=== PATIENT | female | born 1965 | race Caucasian/White ===

== ENCOUNTER → 2017-04-20 | Outpatient (CLI) | payer BC ==
--- NOTE | 2017-04-20 10:54 | US ---
EXAMINATION TYPE: US abdomen limited DATE OF EXAM: 04/20/2017 COMPARISON: 05/02/2016 CLINICAL HISTORY: R10.11 RUQ Abdominal Pain. h/o cholecystectomy. Patient is to follow with HIDA scan of pancreas soon EXAM MEASUREMENTS: Liver Length: 16.6 cm Gallbladder Wall: Surgically absent CBD: 0.5 cm Right Kidney: 10.8 x 3.7 x 3.4 cm Pancreas: wnl Liver: slightly difficult to penetrate Gallbladder: Surgically absent Evidence for sonographic Kennedy's sign: yes CBD: wnl Right Kidney: wnl IMPRESSION: 1. Fatty liver. 2. Postoperative changes of cholecystectomy.
== END | disposition home or self-care (01) ==
LOC: RADUSWWP 04-19 07:36
PROVIDERS: ATTEND Family Medicine
DX: K76.0 Fatty (change of) liver, not elsewhere classified (principal); Z90.49 Acquired absence of other specified parts of digestive tract
CPT/HCPCS: 76705

== ENCOUNTER → 2017-05-23 | Outpatient (CLI) | payer BC ==
--- NOTE | 2017-05-23 08:06 | US ---
EXAMINATION TYPE: US pelvis complete transvag DATE OF EXAM: 05/23/2017 COMPARISON: Pelvic ultrasound February 23, 2015 CLINICAL HISTORY: R10.2 PELVIC PAIN RT. Right side discomfort, Ablation- 2014, No periods, hx of c-se ction TECHNIQUE: Transvaginal (TV) and Transabdominal (TA) Date of LMP: 2014, EXAM MEASUREMENTS: Uterus: 7.8 x 3.7 x 3.3 cm Endometrial Stripe: 0.4 cm Right Ovary: 2.1 x 1.3 x 1.4 cm Left Ovary: 2.2 x 1.5 x 1.3 cm 1. Uterus: Anteverted Appears heterogenous. scar seen. Midline fundal hypoechoic lesio n = 1.5 x 1.8 x 1.8 cm. Left cystic appearing lesion seen = 0.5 x 0.6 x 0.3 cm 2. Endometrium: portions difficult to distinguish, possibly due to ablation 3. Right Ovary: wnl 4. Left Ovary: wnl Color doppler imaging shows good vascular flow within the ovaries; 5. Bilateral Adnexa: wnl 6. Posterior cul-de-sac: no free fluid cervix- wnl Anteverted uterus is present. Technologist zavala 2.0 cm poor defined oval hypoechoic lesion bulging u terine contour felt to reflect subserosal fibroid superiorly and anteriorly on image 15. Myometrium i s heterogeneous with cystic change. Endometrium is felt within normal limits. No free fluid is seen i n pelvis. Both ovaries are identified. No suspicious adnexal lesions are seen. IMPRESSION: Probable intrauterine fibroid or fibroids. No suspicious finding is seen to account for p atient's symptoms.
--- NOTE | 2017-05-23 08:24 | BD ---
EXAMINATION TYPE: MG DEXA axial skeleton. DATE OF EXAM: 05/23/2017 COMPARISON: NONE CLINICAL HISTORY: Screening (Z13.820) per order Height: 66 Weight: 161.5 FRAX RISK QUESTIONS: Alcohol (3 or more units per day): NO Family History (Parent hip fracture): NO Glucocorticoids (More than 3mos): no (Ex: prednisone, prednisolone, methylprednisolone, dexamethasone, and hydrocortisone). History of Fracture in Adulthood: no Secondary Osteoporosis: 1. Type 1 Diabetes: no 2. Hyperthyroidism: no 3. Menopause before 45: no 4. Malnutrition: no 5. Chronic liver disease: no Rheumatoid Arthritis: no Current Tobacco Use: no RISK FACTORS HISTORY OF: Hip Fracture (Right/Left): no spine Fracture: no History of Wrist Fracture: no Surgery to Spine/Hip(right/left)/Wrist (right/left): no Family History of Osteoporosis: no Active: yes Diet low in dairy products/other sources of calcium: no Postmenopausal woman: ablation at age 49 Lost more than 2 inches in height since high school: no Frequent falls: no Poor Health: no Hyperparathyroidism: no Adrenal Insufficiency: no MEDICATIONS: Thyroid Medications: synthroid How Lon years Additional History: EXAM MEASUREMENTS: Bone mineral densitometry was performed using the [employer]. Bone mineral density as measured about the Lumbar spine is: ----- L1-L4(G/cm2): 1.465 T Score Values are as follows: ----- L2: 2.2 ----- L3: 3.0 ----- L4: 2.4 ----- L1-L4: 2.4 Bone mineral density baseline Bone mineral density about the R hip (g/cm2): 0.917 Bone mineral density about the L hip (g/cm2): 0.950 T Score values are as follows: -----R Neck: -0.9 -----L Neck: -0.6 -----R Total: -0.3 -----L Total: -0.3 Bone mineral density baseline IMPRESSION: Normal (Values between +1 and -1 indicate normal bone mass). Consider repeating this study in 5 year s or sooner if there is some new clinical indication. NOTE: T-SCORE=SD OF THE YOUNG ADULT MEAN.
--- NOTE | 2017-05-24 09:28 | MM ---
Reason for exam: screening (asymptomatic). Last mammogram was performed 1 year and 1 month ago. History: Implant Removal of both breasts, September 2015. Retro-pectoral saline implants in both breasts, June 1997. Took hormonal contraceptives beginning at age 17. Physical Findings: A clinical breast exam by your physician is recommended on an annual basis and results should be correlated with mammographic findings. MG 3D Screening Mammo W/Cad Bilateral CC and MLO view(s) were taken. Prior study comparison: April 22, 2016, bilateral MG diagnostic mammo w CAD ARMIN. February 23, 2015, bilateral MG diagnostic mammo w CAD ARMIN. The breast tissue is extremely dense which could obscure a lesion on mammography. Finding #1: There is a less than 10 mm round mass in the central position of the right breast. Finding #2: There are typically benign calcifications in both breasts. ASSESSMENT: Incomplete: need additional imaging evaluation, BI-RAD 0 RECOMMENDATION: Ultrasound of the right breast. [facility] will attempt to contact patient to return for ultrasound.
== END | disposition home or self-care (01) ==
LOC: RADUSWWP 07:11
PROVIDERS: ATTEND Obstetrics & Gynecology
DX: Z12.31 Encounter for screening mammogram for malignant neoplasm of breast (principal); R10.2 Pelvic and perineal pain; Z13.820 Encounter for screening for osteoporosis
CPT/HCPCS: 77080; 77063; 76856; 76830; G0202

== ENCOUNTER → 2017-05-25 | Outpatient (CLI) | payer BC ==
--- NOTE | 2017-05-25 10:49 | USB ---
Reason for exam: additional evaluation requested from abnormal screening. History: Implant Removal of both breasts, September 2015. Retro-pectoral saline implants in both breasts, June 1997. Took hormonal contraceptives beginning at age 17. Physical Findings: Nurse Summary: right breast movable palpable 9 o'clock 1 x 1cm, 2 o'clock 1 x 1cm (nurse ts). US Breast Workup Limited RT Right breast ultrasound demonstrates a 15 x 7 x 8mm cystic lesion at 9 o'clock, a 6mm cystic lesion at 10 o'clock, a 19 x 9 x 18mm cystic lesion at 12 o'clock and a 6 x 4 x 5mm isoechoic lesion at 4 o'clock, attempt aspiration post morphology on day of procedure with biopsy is persistent. These results were verbally communicated with the patient and result sheet given to the patient on 05/25/17. ASSESSMENT: Suspicious, BI-RAD 4 RECOMMENDATION: Ultrasound core biopsy of the right breast. Called Dr. Enriquez with mammographic findings and has scheduled an appointment for the patient for 06/05/17 at 11:[address] Marin. PRELIMINARY REPORT CALLED AND FAXED TO DR. MARIN ON 05/25/17.
== END | disposition home or self-care (01) ==
LOC: RADUSWWP 07:35
PROVIDERS: ATTEND Obstetrics & Gynecology
DX: R92.8 Other abnormal and inconclusive findings on diagnostic imaging of breast (principal)

== ENCOUNTER → 2017-06-07 | Day surgery (SDC) | payer BC ==
[2017-06-07 11:46] VITALS: RESP 12
[2017-06-07 13:17] VITALS: BP 120/79; PULSE 67; TEMP 97.2
--- NOTE | 2017-06-07 13:28 | USB ---
EXAMINATION TYPE: US biopsy breast VAD RT, MG diagnostic mammo RT wo CAD DATE OF EXAM: 06/07/2017 CLINICAL HISTORY: R92.8 ABN MAMMO. Abnormal ultrasound TECHNIQUE: Ultrasound guided core biopsy of right breast with clip placement and follow-up two-view mammogram. COMPARISON: Right breast ultrasound May 25, 2017. Bilateral breast mammogram May 23, 2017 and older studies. FINDINGS: The procedure of ultrasound guided core biopsy was explained to the patient. Benefits, alternatives, and risks were discussed. An informed consent was then obtained. The patient was placed in supine positioning for imaging and for the procedure. Preprocedure imaging redemonstrates a 5 mm hypoechoic round lesion 4: 00 position zone a with some increased through transmission. The overlying skin was prepped and draped in usual sterile fashion. Lidocaine was used as anesthetic into the skin. Lidocaine with epinephrine is used as anesthetic into the deeper tissue up to area of concern in the right breast. Under ultrasound guidance, a 12-gauge vacuum assisted biopsy gun device was used to obtain 3 core samples. Following this, a biopsy clip was left at site of lesion. After first biopsy sampling lesion was not well identified. The patient tolerated the procedure well without any immediate complication. The patient was kept in the radiology department for short stay after the procedure and then discharged home in stable condition. Postprocedure mammogram shows successful deployment of clip. Patient has background fibrocystic change. IMPRESSION: Successful, uncomplicated ultrasound guided core biopsy of area of concern in the right breast, full pathology results to follow. Low index of suspicion noted at time of procedure. Favor debris-filled cyst. Pathology Results: Benign BREAST, RIGHT, ULTRASOUND GUIDED CORE BIOPSY: FIBROCYSTIC CHANGE (STROMAL FIBROSIS, CYST FORMATION, APOCRINE METAPLASIA, ADENOSIS AND DUCT HYPERPLASIA). Recommendation Follow up ultrasound of the right breast in 6 months. KATIED
== END ==
LOC: RADUSWWP 11:13
PROVIDERS: ATTEND Surgery
DX: N60.31 Fibrosclerosis of right breast (principal); N60.01 Solitary cyst of right breast; N60.81 Other benign mammary dysplasias of right breast; N60.21 Fibroadenosis of right breast
CPT/HCPCS: 19083; 88305; G0206; A4648; J2001

== ENCOUNTER → 2017-11-30 | Outpatient (CLI) | payer BC ==
--- NOTE | 2017-11-30 07:55 | USB ---
Reason for exam: follow-up at short interval from prior study. History: Benign US biopsy breast VAD RT of the right breast, June 07, 2017. Implant Removal of both breasts, September 2015. Retro-pectoral saline implants in both breasts, June 1997. Took hormonal contraceptives beginning at age 17. Physical Findings: Nurse Summary: patient noticed lump in September, 1-2cm (nurse alexia). US Breast RT Right complete breast ultrasound includes all four quadrants, the retroareolar region and axilla. Finding demonstrates several oval, cystic lesions measuring 19 x 16 x 19mm at 12 o'clock BB, 25mm at 1 o'clock, 3mm at 8 o'clock, 16mm at 9 o'clock and a echogenic clip seen at 4 o'clock-no structure seen at clip. These results were verbally communicated with the patient and result sheet given to the patient on 11/30/17. ASSESSMENT: Benign, BI-RAD 2 RECOMMENDATION: Return to routine screening mammogram schedule for both breasts. Back on schedule.
== END | disposition home or self-care (01) ==
LOC: RADUSWWP 07:01
PROVIDERS: ATTEND Family Medicine
DX: R92.8 Other abnormal and inconclusive findings on diagnostic imaging of breast (principal)

== ENCOUNTER → 2018-11-20 | Outpatient (CLI) | payer BC ==
--- NOTE | 2018-11-20 08:08 | CT ---
EXAMINATION TYPE: CT chest wo/w con DATE OF EXAM: 11/20/2018 COMPARISON: None HISTORY: 53-year-old female Asthma, cough TECHNIQUE: Contiguous axial scanning of the chest after the administration of 100 mL of Isovue 300. Coronal/sagittal reconstructions performed. CT DLP: 429mGycm. Automatic exposure control utilized for a dose reduction. FINDINGS: Heart normal size without pericardial effusion. Aorta normal caliber with conventional arch vessel branching anatomy. No thoracic lymphadenopathy by CT size criteria. Some strandy atelectasis or scarring at the left base. Minimal biapical pleural parenchymal scarring is also noted. No consolidation or pleural effusion. Visualized upper abdomen shows cholecystectomy clips. Bones: No osseous destructive process. IMPRESSION: Some strandy left basilar atelectasis or scarring. No acute pulmonary process identified.
== END | disposition home or self-care (01) ==
LOC: RADCTMAIN 07:01
PROVIDERS: ATTEND Nurse Practitioner Family
DX: J45.909 Unspecified asthma, uncomplicated (principal); R05 Cough
CPT/HCPCS: 71270; Q9967

== ENCOUNTER → 2019-04-26 | Outpatient (CLI) | payer BC ==
--- NOTE | 2019-04-26 15:29 | US ---
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 Follow up thyroid nodules GLAND SIZE: Right Lobe: 4.3 x 1.2 x 1.2 cm Overall Parenchyma: homogenous Left Lobe: 4.0 x 1.0 x 1.3 cm Overall Parenchyma: homogeneous Isthmus Thickness: 0.2 cm NODULES RIGHT: # of nodules measured on right: 0 LEFT: # of nodules measured on left: 2 1. 0.6 X 0.4 x 0.5 cm hypoechoic solid nodule at the mid pole with well-defined margins; . This no dule is wider than tall and shows intranodular vascularity. Prior size: 0.6 x 0.4 x 0.5 cm 2. 0.4 X 0.3 x 0.3 cm isoechoic solid nodule at the upper pole with poorly defined margins; . This nodule is wider than tall and shows intranodular vascularity. Prior size: 0.3 x 0.2 x 0.3 cm ISTHMUS: # of nodules measured in the isthmus: 0 Bilateral neck scanned, no evidence of lymphadenopathy. IMPRESSION: No interval increase in size of the left thyroid nodules. Continued surveillance could be considered.
== END ==
LOC: RADUSWWP 14:51
PROVIDERS: ATTEND Family Medicine
DX: E04.2 Nontoxic multinodular goiter (principal)
CPT/HCPCS: 76536

== ENCOUNTER → 2019-06-10 | Outpatient (CLI) | payer BC ==
--- NOTE | 2019-06-11 08:45 | MM ---
Reason for exam: screening (asymptomatic). Last mammogram was performed 2 years ago. History: Benign US biopsy breast VAD RT of the right breast, June 07, 2017. Implant Removal of both breasts, September 2015. Retro-pectoral saline implants in both breasts, June 1997. Took hormonal contraceptives beginning at age 17. Physical Findings: A clinical breast exam by your physician is recommended on an annual basis and results should be correlated with mammographic findings. MG 3D Screening Mammo W/Cad Bilateral CC and MLO view(s) were taken. Prior study comparison: June 07, 2017, right breast MG diagnostic mammo RT wo CAD. May 23, 2017, bilateral MG 3d screening mammo w/cad. The breast tissue is heterogeneously dense. This may lower the sensitivity of mammography. Finding: There is a 11 mm circumscribed round mass in the outer quadrant, middle position of the right breast and adjacent nodule. Previous mammotome biopsy in the right breast. New finding and increase in size since June 07, 2017 and May 23, 2017. ASSESSMENT: Incomplete: need additional imaging evaluation, BI-RAD 0 RECOMMENDATION: Ultrasound of the right breast. [facility] will attempt to contact patient to return for ultrasound.
== END | disposition home or self-care (01) ==
LOC: RADMAMWWP 08:15
PROVIDERS: ATTEND Family Medicine
DX: Z12.31 Encounter for screening mammogram for malignant neoplasm of breast (principal); R92.8 Other abnormal and inconclusive findings on diagnostic imaging of breast
CPT/HCPCS: 77063; 77067

== ENCOUNTER → 2019-06-24 | Outpatient (CLI) | payer BC ==
--- NOTE | 2019-06-24 10:10 | USB ---
Reason for exam: additional evaluation requested from abnormal screening. History: Benign US biopsy breast VAD RT of the right breast, June 07, 2017. Implant Removal of both breasts, September 2015. Retro-pectoral saline implants in both breasts, June 1997. Took hormonal contraceptives beginning at age 17. Physical Findings: Nurse Summary: Patient complains of breast pain, right breast lump (nurse mj). US Breast Workup Limited RT Right limited breast ultrasound including focal area of concern, retroareolar and axilla demonstrates a 1.3 x 0.8 x 0.8cm oval, cystic cluster at 9 o'clock correlates with mammogram, a 0.4 x 0.2 x 0.5cm oval, cystic lesion at 10 o'clock and a 0.4 x 0.4 x 0.4cm oval, cystic lesion at 10 o'clock. These results were verbally communicated with the patient and result sheet given to the patient on 06/24/19. ASSESSMENT: Benign, BI-RAD 2 RECOMMENDATION: Return to routine screening mammogram schedule for both breasts.
== END | disposition home or self-care (01) ==
LOC: RADUSWWP 07:07
PROVIDERS: ATTEND Family Medicine
DX: R92.8 Other abnormal and inconclusive findings on diagnostic imaging of breast (principal)

== ENCOUNTER 2020-09-25 06:53 | Day surgery (SDC) | payer BC ==
[2020-09-23 08:27] VITALS: BMI 26.6
[2020-09-25 07:18] VITALS: TEMP 98.5
[2020-09-25] MEDS ORDERED: LIDOCAINE 1% (10MG/ML) FOR IV START INTRADERMA ONE (07:19)
[2020-09-25] MEDS ORDERED: LACTATED RINGERS 1,000 ML IV ONE (07:19)
[2020-09-25] MEDS ORDERED: PROPOFOL 10 MG/ML 20 ML VIAL IV ONE (07:40)
--- NOTE | 2020-09-25 07:59 | P.PCN ---
Date of Procedure: 09/25/20 Procedure(s) Performed: BRIEF HISTORY: Patient is a 54-year-old pleasant white female scheduled for an elective colonoscopy as a part of screening for colorectal neoplasia. She has family history of colon cancer diagnosed in grandmother in her 50s. PROCEDURE PERFORMED: Colonoscopy. PREOPERATIVE DIAGNOSIS: Screening for colon cancer/family history of colon cancer. IV sedation per Anesthesia. PROCEDURE: After informed consent was obtained, the patient, was brought into the endoscopy unit. IV sedation was administered by Anesthesia under continuous monitoring. Digital rectal examination was normal. Initially the Olympus CF-160 flexible video colonoscope was then inserted in the rectum, gradually advanced into the cecum without any difficulty. Careful examination was performed as the scope was gradually being withdrawn. Ileocecal valve and the appendiceal orifice were visualized and appeared normal. Prep was excellent. Mucosa of the cecum, ascending colon, transverse colon, descending colon, sigmoid colon, and rectum appeared normal. Retroflexion was performed in the rectum and no lesions were seen. The patient tolerated the procedure well. IMPRESSION: Normal-appearing colon from rectum to cecum with no evidence of colitis or colorectal neoplasia . RECOMMENDATIONS: Findings of this examination were discussed with the patient as well as a family. She was advised to have a repeat screening colonoscopy in 10 years..
[2020-09-25 08:04] VITALS: RESP 16
[2020-09-25 08:18] VITALS: BP 101/63; PULSE 71
== END 2020-09-25 08:48 | disposition home or self-care (01) ==
LOC: ORWHC2ENDO 06:53
PROVIDERS: ATTEND Internal Medicine Gastroenterology
DX: Z12.11 Encounter for screening for malignant neoplasm of colon (principal); Z80.0 Family history of malignant neoplasm of digestive organs; E07.9 Disorder of thyroid, unspecified; Z79.890 Hormone replacement therapy; Z79.899 Other long term (current) drug therapy
CPT/HCPCS: J2704; G0121

== ENCOUNTER → 2020-11-05 | Outpatient (CLI) | payer BC ==
--- NOTE | 2020-11-05 07:37 | US ---
EXAMINATION TYPE: US abdomen limited DATE OF EXAM: 11/05/2020 COMPARISON: NONE CLINICAL HISTORY: R74.01 elevations of levels of liver. tightness in RUQ, cholecystectomy, elevated l ft's EXAM MEASUREMENTS: Liver Length: 17.1 cm Gallbladder Wall: Surgically absent CBD: 0.4 cm Right Kidney: 11.2 x 3.4 x 3.4 cm Pancreas: wnl Liver: areas of focal fatty seen near sean hepatis Gallbladder: Surgically absent Evidence for sonographic Kennedy's sign: no CBD: wnl Right Kidney: wnl IMPRESSION: 1. Findings suggest hepatic steatosis with area of focal fatty sparing. 2. Postcholecystectomy changes.
== END | disposition home or self-care (01) ==
LOC: RADUSWWP 06:57
PROVIDERS: ATTEND Family Medicine
DX: K76.0 Fatty (change of) liver, not elsewhere classified (principal); Z90.49 Acquired absence of other specified parts of digestive tract
CPT/HCPCS: 76705

== ENCOUNTER → 2020-11-10 | Outpatient (CLI) | payer BC ==
--- NOTE | 2020-11-10 11:23 | ECHOF ---
Referral Reason:R07.89 chest pain MEASUREMENTS -------- HEIGHT: 170.2 cm WEIGHT: 74.8 kg BP: RVIDd: 2.4 cm (< 3.3) IVSd: 0.9 cm (0.6 - 1.1) LVIDd: 3.9 cm (3.9 - 5.3) LVPWd: 1.0 cm (0.6 - 1.1) IVSs: 1.1 cm LVIDs: 3.0 cm LVPWs: 1.2 cm LA Diam: 2.8 cm (2.7 - 3.8) LAESV Index (A-L): 12.20 ml/m Ao Diam: 2.5 cm (2.0 - 3.7) AV Cusp: 1.6 cm (1.5 - 2.6) MV EXCURSION: 18.894 mm (> 18.000) MV EF SLOPE: 92 mm/s (70 - 150) EPSS: 0.3 cm MV E Tony: 0.51 m/s MV DecT: 210 ms MV A Tony: 0.45 m/s MV E/A Ratio: 1.14 RAP: 5.00 mmHg RVSP: 12.70 mmHg FINDINGS -------- Sinus rhythm. This was a technically adequate study. LV size, wall thickness and systolic function are normal, with an EF greater than 55%. The left harmony tricular size is normal. The diastolic filling pattern is normal for the age of the patient 6.44. The right ventricle is normal in size. Normal LA size by volume 22+/-6 ml/m2. The right atrial size is normal. The aortic valve is trileaflet, and appears structurally normal. No aortic stenosis or regurgitation. The mitral valve is normal. Mild mitral regurgitation is present. The tricuspid valve appears structurally normal. Mild tricuspid regurgitation present. Right vent ricular systolic pressure is normal at < 35 mmHg. The pulmonic valve was not well visualized. There is no pulmonic regurgitation present. The aortic root size is normal. There is no pericardial effusion. CONCLUSIONS -------- 1. LV size, wall thickness and systolic function are normal, with an EF greater than 55%. 2. Normal LA size by volume 22+/-6 ml/m2. 3. The aortic valve is trileaflet, and appears structurally normal. No aortic stenosis or regurgitati on. 4. Mild mitral regurgitation is present. 5. Mild tricuspid regurgitation present. 6. There is no pericardial effusion. ENTEROSTOMAL THERAPY NURSE: Tasha Quintero RDCS
== END | disposition home or self-care (01) ==
LOC: RADECHMAIN 08:19
PROVIDERS: ATTEND Family Medicine
DX: I08.1 Rheumatic disorders of both mitral and tricuspid valves (principal)
CPT/HCPCS: 93306

== ENCOUNTER → 2020-11-16 | Outpatient (CLI) | payer BC | END | disposition home or self-care (01) | LOC: RADNMMAIN 07:47 | PROVIDERS: ATTEND Family Medicine | DX: Z53.9 Procedure and treatment not carried out, unspecified reason (principal) ==

== ENCOUNTER → 2020-11-19 | Outpatient (CLI) | payer BC ==
--- NOTE | 2020-11-19 12:23 | P.STRESS ---
- Stress Test Note Stress Test Results/Findings: Exam Performed: NM stress cardiolite complete Exam Date: 11/19/20 Reason for Exam: CP Height: 5 ft 5 in Weight: 164 kg Protocol: CARDIOLITE Stage: IV Duration of Exercise: 11 Resting Heart Rate: 73 Resting Blood Pressure: 111/84 Maximum Achieved Heart Rate: 181 Maximum Achieved Blood Pressure: 191/62 85% PMHR: 141 100% PMHR: 166 METS: 10.9 Technologist Comment: Stress Test Results/Findings: This is a 55-year-old female with history of chest pain, shortness of breath and also hypercholesteremia being evaluated for cardiac status. Stress data: Baseline EKG showed sinus rhythm with normal CA interval, QRS duration. Blood pressure at rest is 111/84 with pulse rate of 73. Patient walked to the James protocol for 9 minutes and 20 seconds achieving a maximal heart rate of 181 with blood pressure 191/62. EKGs taken during and after the x-ray did not reveal any significant changes from the baseline. Patient did not expense any chest pain. Final impression: #1. Good exercise capacity #2. Patient did not expense any chest pain #3. Negative stress test #4. No arrhythmias noted
--- NOTE | 2020-11-19 12:53 | NM ---
EXAMINATION TYPE: NM stress cardiolite complete DATE OF EXAM: 11/19/2020 COMPARISON: NONE HISTORY: R07.89 Other chest pain R06.02 Shortness of breath TECHNIQUE: After the intravenous administration of 10.2 mCi Tc 99m Sestamibi - Rest images obtained 45 minutes post injection. The patient exercised using a BRIAN protocol and 1 minute prior to peak exercise was injected with 24.4 mCi Tc 99m Sestamibi - Stress images obtained 20 minutes post injecti on. FINDINGS: Targeted heart rate was achieved during performance of the study. Review of stress and rest SPECT kailyn ges demonstrates no distinct perfusion abnormality. Gated analysis shows normal wall motion with an estimated left ventricular ejection fraction of 65 %. IMPRESSION: No scintigraphic evidence for reversible ischemia
--- NOTE | 2020-11-19 16:20 | ECHOS ---
Stress Test Results/Findings: Exam Performed: NM stress cardiolite complete Exam Date: 11/19/20 Reason for Exam: CP Height: 5 ft 5 in Weight: 164 kg Protocol: CARDIOLITE Stage: IV Duration of Exercise: 11 Resting Heart Rate: 73 Resting Blood Pressure: 111/84 Maximum Achieved Heart Rate: 181 Maximum Achieved Blood Pressure: 191/62 85% PMHR: 141 100% PMHR: 166 METS: 10.9 Technologist Comment: Stress Test Results/Findings: This is a 55-year-old female with history of chest pain, shortness of breath and also hypercholesteremia being evaluated for cardiac status. Stress data: Baseline EKG showed sinus rhythm with normal ID interval, QRS duration. Blood pressure at rest is 111/84 with pulse rate of 73. Patient walked to the James protocol for 9 minutes and 20 seconds achieving a maximal heart rate of 181 with blood pressure 191/62. EKGs taken during and after the x-ray did not reveal any significant changes from the baseline. Patient did not expense any chest pain. Final impression: #1. Good exercise capacity #2. Patient did not experiance any chest pain #3. Negative stress test #4. No arrhythmias noted MTDD
== END | disposition home or self-care (01) ==
LOC: RADNMMAIN 08:56
PROVIDERS: ATTEND Family Medicine
DX: R07.89 Other chest pain (principal); R06.02 Shortness of breath
CPT/HCPCS: 93017; 78452; A9500

== ENCOUNTER → 2020-12-04 | Outpatient (CLI) | payer BC ==
--- NOTE | 2020-12-09 12:53 | MM ---
Reason for exam: screening (asymptomatic). Last mammogram was performed 1 year and 6 months ago. History: Patient is postmenopausal. Benign US biopsy breast VAD RT of the right breast, June 07, 2017. Implant Removal of both breasts, September 2015. Retro-pectoral saline implants in both breasts, June 1997. Took hormonal contraceptives beginning at age 17. Physical Findings: A clinical breast exam by your physician is recommended on an annual basis and results should be correlated with mammographic findings. MG 3D Screening Mammo W/Cad Bilateral CC and MLO view(s) were taken. Prior study comparison: June 10, 2019, bilateral MG 3d screening mammo w/cad. June 07, 2017, right breast MG diagnostic mammo RT wo CAD. The breast tissue is heterogeneously dense. This may lower the sensitivity of mammography. Right increased calcifications slightly medial posterior depth. Previous mammotome biopsy in the right breast. ASSESSMENT: Incomplete: need additional imaging evaluation, BI-RAD 0 RECOMMENDATION: Special view mammogram of the right breast. [facility] will attempt to contact patient to return for supplemental views.
== END | disposition home or self-care (01) ==
LOC: RADMAMWWP 13:47
PROVIDERS: ATTEND Family Medicine
DX: Z12.31 Encounter for screening mammogram for malignant neoplasm of breast (principal); Z78.0 Asymptomatic menopausal state
CPT/HCPCS: 77063; 77067

== ENCOUNTER → 2020-12-16 | Outpatient (CLI) | payer BC ==
--- NOTE | 2020-12-16 14:50 | MM ---
Reason for exam: additional evaluation requested from abnormal screening. Last mammogram was performed less than 1 month ago. History: Patient is postmenopausal. Benign US biopsy breast VAD RT of the right breast, June 07, 2017. Implant Removal of both breasts, September 2015. Retro-pectoral saline implants in both breasts, June 1997. Took hormonal contraceptives beginning at age 17. Physical Findings: Nurse did not find any significant physical abnormalities on exam. MG 3D Work Up W/Cad RT CC with magnification, ML with magnification, and LM view(s) were taken of the right breast. Prior study comparison: December 04, 2020, bilateral MG 3d screening mammo w/cad. June 10, 2019, bilateral MG 3d screening mammo w/cad. The breast tissue is heterogeneously dense. This may lower the sensitivity of mammography. Finding: There are intermediate concern, suspicious coarse heterogeneous, grouped/clustered calcifications in the posterior position of the right breast CC view. New finding since June 10, 2019. These results were verbally communicated with the patient and result sheet given to the patient on 12/16/20. ASSESSMENT: Suspicious, BI-RAD 4 RECOMMENDATION: Stereotactic core biopsy of the right breast. (right breast posterior CC calcifications) Called Dr. Ramirez's office with mammographic findings and has scheduled an appointment for the patient for 12/17/20 at 1:[address] Winchester. PRELIMINARY REPORT CALLED AND FAXED TO DR. WINCHESTER ON 12/16/20.
== END | disposition home or self-care (01) ==
LOC: RADMAMWWP 07:06
PROVIDERS: ATTEND Family Medicine
DX: R92.1 Mammographic calcification found on diagnostic imaging of breast (principal); Z78.0 Asymptomatic menopausal state
CPT/HCPCS: 77061; 77065

== ENCOUNTER → 2020-12-28 | Day surgery (SDC) | payer BC ==
[2020-12-28 09:50] VITALS: RESP 16
[2020-12-28 11:20] VITALS: BP 120/74; PULSE 67; TEMP 98.5
--- NOTE | 2020-12-28 11:54 | MM ---
EXAMINATION TYPE: MG stereo VAD BX addl RT DATE OF EXAM: 12/28/2020 COMPARISON: 12/16/2020 CLINICAL HISTORY: Right breast calcifications TECHNIQUE: Stereotactic guided core biopsy of right lower central breast. FINDINGS: The procedure of stereotactic guided core biopsy was explained to the patient. Benefits, alternatives, and risks were discussed. An informed consent was then obtained. The shortness pathway for biopsy was chosen. Shortness pathway was inferior approach. I performed the localization, then surgeon, Dr. Hoskins performed the remainder of the procedure without radiologist in the room. A vacuum assisted biopsy gun was used to obtain multiple core samples. The patient tolerated the procedure well without any immediate complication. The patient was kept in the radiology department for short stay after the procedure and then discharged home in stable condition. Targeted calcifications are identified in specimen mammogram. Post biopsy mammogram shows the clip to appear in satisfactory position relative to the targeted area of concern on the preprocedure images. IMPRESSION: SUCCESSFUL, UNCOMPLICATED STEREOTACTIC GUIDED CORE BIOPSY OF AREA OF CONCERN IN THE right BREAST, FULL PATHOLOGY RESULTS TO FOLLOW. Pathology Results: Benign RIGHT BREAST, CORE BIOPSY: Fibrocystic change with columnar cell change/columnar cell hyperplasia and focal microcalcification. Recommendation Follow up mammogram of the right breast in 6 months. KATIED
--- NOTE | 2020-12-28 15:21 | OP ---
OPERATIVE REPORT PREOP DIAGNOSIS: Abnormal mammogram, right breast. POSTOP DIAGNOSIS: Abnormal mammogram, right breast. PROCEDURE: Right stereotactic breast biopsy with marker placement. ANESTHESIA: Local anesthetic. COMPLICATIONS: None. SPECIMEN: Breast tissue. REFERRED BY: Dr. Adams ). FINDINGS AND PROCEDURE: Tova is a 55-year-old female who had a mammogram done showing a change with density and calcifications in the right breast. She has taken to the stereotactic suite where the area of concern is marked by the radiologist. The breast was then prepped. Local anesthetic was instilled in the skin and breast tissue. A small skin nichole was made. The needle was advanced to the appropriate depth. Pre and postfire films were obtained showing the needle to be in good position. Multiple vacuum assisted automated cores were then obtained. Specimen mammography showed multiple calcifications present within the specimen. A tissue marker is then placed in the needle is withdrawn. Imaging shows the marker to be in good placement. The dressings applied. She tolerated the procedure without difficulty and is discharged home to follow up with me in the office on . MMODL / IJN: [id number] /
== END ==
LOC: RADMAMWWP 09:30
PROVIDERS: ATTEND Surgery
DX: N60.11 Diffuse cystic mastopathy of right breast (principal); N62 Hypertrophy of breast; R92.0 Mammographic microcalcification found on diagnostic imaging of breast; R92.8 Other abnormal and inconclusive findings on diagnostic imaging of breast
CPT/HCPCS: 19082; 88305

== ENCOUNTER → 2022-06-01 | Outpatient (CLI) | payer BC ==
--- NOTE | 2022-06-01 08:34 | MM ---
Reason for Exam: Follow-up at short interval from prior study. Last mammogram was performed 1 year(s) and 6 month(s) ago. Patient History: Menarche at age 14. First Full-Term at age 25. Postmenopausal. Hormonal Contraceptives, from age 17 until age 24. 12/28/2020, Benign Core Biopsy on the right side. 06/07/2017, Benign Core Biopsy on the right side. 09/2015, Bilateral Implant Removal. 06/1997, Bilateral Implants. Risk Values: Alda 5 year model risk: 1.6%. NCI Lifetime model risk: 10.9%. Tissue Density: The breast tissue is heterogeneously dense. This may lower the sensitivity of mammography. Findings: Analyzed By CAD. New nodular density upper outer quadrant right breast 5 cm from the nipple. Stable benign calcifications noted. Microclip marker right breast. Overall Assessment: Incomplete: need additional imaging evaluation, BI-RAD 0 Management: Diagnostic Breast Ultrasound of the right breast. A clinical breast exam by your physician is recommended on an annual basis and results should be correlated with mammographic findings. This exam should not preclude additional follow-up of suspicious palpable abnormalities. Results were given to the patient verbally at the time of exam. Electronically signed and approved by: lA Zamora M.D. Radiologis
--- NOTE | 2022-06-01 09:11 | USB ---
Reason for Exam: Follow-up at short interval from prior study. Patient History: Menarche at age 14. First Full-Term at age 25. Postmenopausal. Hormonal Contraceptives, from age 17 until age 24. 12/28/2020, Benign Core Biopsy on the right side. 06/07/2017, Benign Core Biopsy on the right side. 09/2015, Bilateral Implant Removal. 06/1997, Bilateral Implants. Risk Values: Alda 5 year model risk: 1.6%. NCI Lifetime model risk: 10.9%. Prior Study Comparison: 06/10/2019 Bilateral Screening Mammogram, [facility]. 12/04/2020 Bilateral Screening Mammogram, [facility]. 12/16/2020 Right Diagnostic Mammogram, [facility]. Findings: The upper outer quadrant of the right breast, the axilla of the right breast and the retroareolar of the right breast were scanned. Stable simple cyst right 9:00 position measuring 1.5 x 0.9 cm. No solid masses detected.. Overall Assessment: Benign, BI-RAD 2 Management: Screening Mammogram of both breasts in 1 year. A clinical breast exam by your physician is recommended on an annual basis and results should be correlated with mammographic findings. This exam should not preclude additional follow-up of suspicious palpable abnormalities. Results were given to the patient verbally at the time of exam. Electronically signed and approved by: Al Zamora M.D. Radiologis
== END | disposition home or self-care (01) ==
LOC: RADMAMWWP 08:06
PROVIDERS: ATTEND Family Medicine
DX: R92.8 Other abnormal and inconclusive findings on diagnostic imaging of breast (principal); Z78.0 Asymptomatic menopausal state
CPT/HCPCS: 77062; 77066